=== PATIENT | male | born 1960 | race Hispanic/Latino ===

== ENCOUNTER 2020-08-20 07:48 | Emergency (ER) | payer BC, OTHER ==
[~2020-08-20] VITALS: Ht 175.3 cm; Wt 94.3 kg
[2020-08-20 07:50] VITALS: BP 174/89
[2020-08-20 08:12] LABS: BASOPHILS % (AUTO) 0.4 % (0.0-5.0); EOSINOPHILS % (AUTO) 1.3 % (0.0-8.0); HEMATOCRIT 46.9 % (42-54); LYMPHOCYTES % (AUTO) 30.8 % (21.0-51.0); MEAN CORPUSCULAR HEMOGLOBIN 30.2 pg (27.0-33.0); MEAN CORPUSCULAR HGB CONC 33.7 g/dL (32.0-36.0); MEAN CORPUSCULAR VOLUME 89.7 fL (79-99); MONOCYTES % (AUTO) 7.4 % (3.0-13.0); NEUTROPHILS % (AUTO) 59.8 % (40.0-77.0); PLATELET COUNT (AUTO) 169 K/uL (130-400); RED BLOOD CELL COUNT(AUTO) 5.23 MIL/uL (4.50-6.20); WHITE BLOOD COUNT (AUTO) 6.9 K/uL (4.8-10.8)
[2020-08-20 08:29] LABS: BILIRUBIN,TOTAL 0.7 mg/dL (0.2-1.0); CREATININE 1.1 mg/dL (0.5-1.5); POTASSIUM 4.9 mmol/L (3.5-5.1); TOTAL PROTEIN, SERUM 7.2 g/dL (6.0-8.3)
[2020-08-20 08:59] LABS: CREATINE KINASE, TOTAL 155 U/L (21-232); MYOGLOBIN 46 ng/mL (10-92); TROPONIN I < 0.04 ng/mL (0.00-0.06)
[2020-08-20] MEDS ORDERED: KETOROLAC 30MG VIAL (30MG/ML) IM SCH (10:30)
[2020-08-20] MEDS ORDERED: ACETAMINOPHEN 500 MG TABLET PO SCH (10:30)
[2020-08-20] MEDS ORDERED: ORPH100 PO (11:26)
[2020-08-20] MEDS ORDERED: NAPR-1180 PO (11:26)
[2020-08-20 11:46] VITALS: BP 159/86
== END 2020-08-20 11:44 | disposition home or self-care (01) ==
LOC: EDH 07:48
DX: M54.16 Radiculopathy, lumbar region (principal); M79.662 Pain in left lower leg; I10 Essential (primary) hypertension; E66.9 Obesity, unspecified; E78.5 Hyperlipidemia, unspecified; F17.200 Nicotine dependence, unspecified, uncomplicated; Z79.1 Long term (current) use of non-steroidal anti-inflammatories (NSAID); Z79.82 Long term (current) use of aspirin
CPT/HCPCS: 36415; 70450; 72110; 80053; 82550; 83874; 84484; 85025; 93005; 93971; 96372; 99285; J1885